=== PATIENT | female | born 1990 | race American Indian/Alaskan Native ===

== ENCOUNTER 2016-12-17 06:04 | Day surgery (SDC) | payer BC, MEDICAID, OTHER ==
[~2016-12-17 06:04] MED LIST: Lactated Ringers 1,000 ML IV SCH; Sodium Chloride 0.9% 10 ML Syringe FLUSH PRN; ceFAZolin 1 GM in Premix Bag 1 BAG IV ONE
[2016-12-17] MEDS ORDERED: Lidocaine 1% 30 ML SDV ONE (06:15)
[2016-12-17] MEDS ORDERED: Bupivacaine 0.5% 10 ML SDV ONE (06:15)
--- NOTE | 2016-12-17 06:47 | PCM.SN ---
- Free Text/Narrative Note: Preop. Meds and allergies reviewed w chart review. No complications w previous anesthetics. NPO > 8 hrs. Pos smoker. neg GERD, Mallampati 1. Hx obesity, tubal ligation, Lungs CTAB, heart RRR s1 S2 w/o m. Risks benefits and alternatives of anesthesia explained to Pt. Pt denies questions or concerns. Plan MAC
[2016-12-17] MEDS ORDERED: Bupivacaine 0.5% 10 ML SDV INJECT ONE ×2 (07:21→09:25)
[2016-12-17] MEDS ORDERED: Lidocaine 1% 30 ML SDV INJECT ONE ×2 (07:21→09:25)
[2016-12-17] MEDS ORDERED: Acetaminophen/oxyCODONE 325-5 MG Tab PO PRN (09:11)
--- NOTE | 2016-12-17 09:14 | PCM.OPNOTE ---
- General Post-Op/Procedure Note Date of Surgery/Procedure: 12/17/16 Operative Procedure(s): Right foot 1st metatarsal osteotomy/bunionectomy Pre Op Diagnosis: Right foot painful bunion Post-Op Diagnosis: martha Anesthesia Technique: Local, MAC Primary Surgeon: Janel Humphreys Anesthesia Provider: Balta Saab EBL in mLs: 5 Complications: none Condition: Good Free Text/Narrative:: Pt tolerated procedure well and was transported to pacu with vss and vascular status intact to all digits. 3.0 ward cannulated screws to bunionectomy. Well padded dressing and cam boot applied.
[2016-12-17] MEDS ORDERED: HYDROmorphone 1 MG/ML Syringe IV ONE (09:25)
[2016-12-17] MEDS ORDERED: Ketorolac 30 MG/ML SDV IVPUSH ONE (09:25)
[2016-12-17] MEDS ORDERED: Midazolam 1 MG/ML 2 ML SDV IV ONE (09:25)
[2016-12-17] MEDS ORDERED: Propofol 200 MG/20 ML SDV IV ONE (09:25)
[2016-12-17] MEDS ORDERED: Ondansetron 4 MG/2 ML SDV IV ONE (09:25)
--- NOTE | 2016-12-17 09:43 | PCM.SN ---
- Free Text/Narrative Note: Post op. Pt alert and oriented. VSS. Pt denies pain or nausea. Tolerating PO well. No anesthesia concerns noted
--- NOTE | 2016-12-18 21:02 | OR ---
DATE: 12/17/2016 PREOPERATIVE DIAGNOSIS: Right foot painful bunion. POSTOPERATIVE DIAGNOSIS: Right foot painful bunion. PROCEDURE PERFORMED: Right foot bunionectomy/osteotomy, Amrit type. ANESTHESIA: Local MAC with preoperative local block of 1:1 mixture of 1% lidocaine plain and 0.5% Marcaine plain. TOURNIQUET TIME: 76 minutes pneumatic ankle tourniquet. ESTIMATED BLOOD LOSS: Minimal. SPECIMEN: None. COMPLICATIONS: None. INDICATIONS: Manuel is a 26-year-old female, who presents with painful bunion, right foot greater than the left. She states the bunions have been present for many years now. She did get these evaluated in the past by a staple side laster, who told her she should wait until she is at least 19 years old to get surgery. She has tried wider shoes, bunion padding, and sponge with no relief. She reports her mother and a couple of aunts also had surgery for her but they are bunions. Pain is worse with walking and is located to the pump. X-rays, 3 views of the right foot revealed deviated 1st metatarsal with intermetatarsal angle of 10 degrees, she does have a significant metatarsus adductus component with metatarsus angle of 20 degrees, hallux abductus angle of 33 degrees, slightly dorsiflexed first metatarsal. The patient voiced good understanding of proposed procedure and possible complications, elects to have surgery at this time. We did discuss Lapidus versus Achilles procedure and she wants to go ahead Achilles at this point. DESCRIPTION OF THE PROCEDURE: The patient was taken to the operating room, lying in supine position. After adequate anesthesia induction as described above. The right foot was prepped and draped in the usual sterile fashion. A pneumatic ankle tourniquet was inflated to 225 mmHg. Attention was then directed to the dorsal aspect of the right foot with the first metatarsophalangeal joint where an approximately 5 cm linear incision was made. Sharp and blunt dissection was performed down to the level of the joint capsule with care to gently retract all neurovascular bundles. An inverted L capsulotomy was made and the capsule was reflected to expose the distal 1st metatarsal. The hypertrophic medial eminence was noted at this time and resected with a sagittal saw. The remainder of the 1st metatarsophalangeal joint appeared healthy without any cartilaginous defects present. Blunt dissection was then performed in the 1st interspace to the level of the fibular sesamoid. The adductor hallucis tendon was transected from its attachment to the fibular sesamoid. A sagittal saw was then used to make a chevron-type osteotomy with a long dorsal arm, angulated in a fashion that would allow plantar displacement to maintenance of length with lateral transposition of the capital fragment. The capital fragment was then laterally transposed approximately 8 mm and impacted to bring the hallux in a near-rectus alignment. Temporary fixation was used with K-wires from the screw set. Two partially- threaded 3.0 [place] screws were then inserted across the osteotomy. The temporary fixation was removed. The osteotomy site was noted to be stable with axial valgus and varus forces applied with fluid range of motion at the first MTPJ. This was all done under fluoroscopy guidance, which did show adequate reduction of the bunion deformity and proper fixation with the screws. The medial capsulorrhaphy was performed. The area was irrigated with copious amounts of sterile saline. Capsular closure was completed with 3-0 Vicryl and skin closure was completed with 4-0 nylon. The hallux was noted to be in near- rectus alignment at this time. The surgical site was then dressed with Xeroform to the incision site, fluffs, Webril and an Mor wrap. The patient was then placed in a Cam boot. The patient tolerated procedure and anesthesia well and left the operating room for recovery with vital signs stable and in good condition with vascular status intact to the right foot as noted by immediate hyperemia to all digits upon deflation of the tourniquet. Total tourniquet time was 76 minutes. The patient was then discharged home when she met hospital discharge requirements. [facility] /[id number]
[2017-02-10 12:50] VITALS: BP 110/73
== END 2016-12-17 10:50 | disposition home or self-care (01) ==
LOC: DL.SDS 06:04
PROVIDERS: ATTEND Podiatrist
DX: M21.611 Bunion of right foot (principal); Z88.1 Allergy status to other antibiotic agents; Z88.6 Allergy status to analgesic agent; Z91.018 Allergy to other foods; Z90.49 Acquired absence of other specified parts of digestive tract; Z98.890 Other specified postprocedural states; F17.210 Nicotine dependence, cigarettes, uncomplicated
CPT/HCPCS: 01480; 28296; C1713; J0690; J1170; J1885; J2250; J2405; J2704; J7120; 76000

== ENCOUNTER 2016-12-28 17:46 | Emergency (ER) | payer OTHER, MEDICAID ==
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
[2016-12-28 19:12] VITALS: BP 122/80
[2016-12-28 19:38] LABS: CHLORIDE,CL 104 mmol/L (101-111); SODIUM,NA 139 mmol/L (135-145)
[2016-12-28] MEDS ORDERED: Ibuprofen 600 MG Tab PO ONE (20:22)
== END 2016-12-28 20:49 | disposition home or self-care (01) ==
LOC: DL.ED 17:46
DX: S16.1XXA Strain of muscle, fascia and tendon at neck level, initial encounter (principal); M19.90 Unspecified osteoarthritis, unspecified site; F17.210 Nicotine dependence, cigarettes, uncomplicated; Z86.2 Personal history of diseases of the blood and blood-forming organs and certain disorders involving the immune mechanism; Z90.49 Acquired absence of other specified parts of digestive tract; Z88.5 Allergy status to narcotic agent; Z88.1 Allergy status to other antibiotic agents; V49.59XA Passenger injured in collision with other motor vehicles in traffic accident, initial encounter
CPT/HCPCS: 36415; 70450; 71250; 72125; 80053; 80305; 81001; 81025; 85025; 99285; A9270

== ENCOUNTER 2017-03-10 22:16 | Emergency (ER) | payer OTHER, MEDICAID ==
[2017-03-10 23:13] VITALS: BP 144/68
--- NOTE | 2017-03-11 00:07 | EDM.PDOC ---
{null, ED HPI GENERAL MEDICAL PROBLEM - General Stated Complaint: ABD PAIN, [id number] Time Seen by Provider: 03/11/17 00:05 Source of Information: Reports: Patient History Limitations: Reports: No Limitations - History of Present Illness INITIAL COMMENTS - FREE TEXT/NARRATIVE: being Tx for UTI told if has increase pain and blood in urine to come here. tonight has them. Bilateral Flank Pain Score (Numeric/FACES): 8 - Related Data Allergies Allergy/AdvReac Type Severity Reaction Status Date / Time codeine Allergy Hives Verified 03/10/17 22:56 erythromycin base Allergy Rash Verified 03/10/17 22:56 [From Pediazole] erythromycin ethylsuccinate Allergy Rash Verified 03/10/17 22:56 [From E.E.S.] strawberry Allergy Cannot Verified 03/10/17 22:56 Remember fentanyl AdvReac Lightheaded Verified 03/10/17 22:56 ness hydromorphone [From Dilaudid] AdvReac Hypotension Verified 03/10/17 22:56 TAPE Allergy Cannot Uncoded 12/28/16 19:15 Remember Home Meds: Home Meds Acetaminophen [Tylenol Extra Strength] 1 - 2 tab PO Q6H PRN 12/01/16 [History] Ibuprofen 1 tab PO Q8H PRN 12/01/16 [History] Ciprofloxacin HCl [Cipro] 1 tab PO BID 03/10/17 [History] Sertraline HCl [Zoloft] 0.5 tab PO DAILY 03/10/17 [History] Past Medical History HEENT History: Reports: None Other HEENT History: wears glasses Cardiovascular History: Reports: None Respiratory History: Reports: None Gastrointestinal History: Reports: None 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 History: Reports: None 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: Musculoskeletal History: Reports: Arthritis Neurological History: Reports: None Psychiatric History: Reports: None Endocrine/Metabolic History: Reports: None Hematologic History: Reports: Anemia, B12 Deficiency Immunologic History: Reports: None Oncologic (Cancer) History: Reports: None Dermatologic History: Reports: Eczema - Infectious Disease History Infectious Disease History: Reports: Chicken Pox - Past Surgical History Female Surgical History: Reports: Section Musculoskeletal Surgical History: Reports: Other (See Below) Social & Family History - Family History HEENT: Reports: None Cardiac: Reports: CAD, Heart Failure, High Cholesterol, Hypertension Respiratory: Reports: Asthma, COPD GI: Reports: Cholelithiasis : Reports: Renal Disease/Insufficiency Musculoskeletal: Reports: Fibromyalgia Neurological: Reports: None Psychiatric: Reports: Anxiety, Depression Endocrine/Metabolic: Reports: Diabetes, type II, Obesity/MBI 30+ Hematologic: Reports: Idiopathic Thrombocytopen Immunologic: Reports: None Dermatologic: Reports: None Oncologic: Reports: None - Tobacco Use Smoking Status *Q: Current Every Day Smoker Years of Tobacco use: 6 Packs/Tins Daily: 0.2 Used Tobacco, but Quit: No Second Hand Smoke Exposure: Yes - Caffeine Use Caffeine Use: Reports: Coffee, Soda Caffeine Use Comment: 2 cups coffee, 1-2 pop daily - Alcohol Use Days Per Week of Alcohol Use: 0 - Recreational Drug Use Recreational Drug Use: No - Sexual History Sexual History: Reports: Sexually Active - Living Situation & Occupation Living situation: Reports: with Significant Other Occupation: Employed ED ROS GENERAL - Review of Systems Review Of Systems: ROS reveals no pertinent complaints other than HPI. ED EXAM, RENAL/ - Physical Exam Exam: See Below Exam Limited By: Other General Appearance: Alert, WD/WN, Mild Distress, Other (discomfort) Ears: Hearing Grossly Normal Throat/Mouth: Normal Voice, No Airway Compromise Head: Atraumatic Neck: Non-Tender, Full Range of Motion Respiratory/Chest: No Respiratory Distress Cardiovascular: Regular Rate, Rhythm GI/Abdominal: Soft, Non-Tender Back Exam: CVA Tenderness (L), CVA Tenderness (R) Neurological: Alert, Oriented, Normal Cognition, Normal Gait, No Motor/Sensory Deficits Psychiatric: Tearful Skin Exam: Warm, Dry Lymphatic: No Adenopathy Course - Vital Signs Last Recorded V/S: Last Vital Signs Temp 37.1 C 03/10/17 23:05 Pulse 78 03/10/17 23:05 Resp 16 03/10/17 23:05 BP 144/68 H 03/10/17 23:05 Pulse Ox 100 03/10/17 23:05 - Orders/Labs/Meds Orders: Active Orders 24 hr Category Date Time Status Phenazopyridine [Urinary Pain Relief] Med 03/11/17 00:33 Once 95 mg PO ONETIME ONE Medication Orders Phenazopyridine HCl (Urinary Pain Relief) 95 mg PO ONETIME ONE Stop: 03/11/17 00:34 Labs: Laboratory Tests 03/11/17 Range/Units 00:08 Urine Color Yellow (YELLOW) Urine Appearance Slightly cloudy (CLEAR) Urine pH 5.0 (5.0-9.0) Ur Specific [place] <= 1.005 (1.005-1.030) Urine Protein Negative (NEGATIVE) Urine Glucose (UA) Negative (NEGATIVE) Urine Ketones Negative (NEGATIVE) Urine Occult Blood Negative (NEGATIVE) Urine Nitrite Negative (NEGATIVE) Urine Bilirubin Negative (NEGATIVE) Urine Urobilinogen 0.2 (0.2-1.0) mg/dL Ur Leukocyte Esterase Trace H (NEGATIVE) Urine RBC 0-5 /HPF Urine WBC 20-30 H (0-5/HPF) /HPF Ur Epithelial Cells Moderate H /HPF Urine Bacteria Moderate H (0-FEW/HPF) /HPF Meds: Medications Generic Name Dose Route Start Last Admin Trade Name Freq PRN Reason Stop Dose Admin Phenazopyridine HCl 95 mg 03/11/17 00:33 Urinary Pain Relief PO 03/11/17 00:34 ONETIME ONE - Re-Assessments/Exams Free Text/Narrative Re-Assessment/Exam: 03/11/17 00:34 results discussed with Pt. Departure - Departure Time of Disposition: 00:34 Disposition: Home, Self-Care 01 Condition: good Clinical Impression: UTI, Urinary tract infectious disease - Discharge Information Instructions: Urinary Tract Infection, Adult, [id number] Forms: ED Department Discharge Additional Instructions: 1) rest 2) drink lots of liquids 3) follow up at clinic or recheck asneeded rx given: pyridium 100mg tid prn x 12 - My Orders Last 24 Hours: My Active Orders 03/11/17 00:33 Phenazopyridine [Urinary Pain Relief] 95 mg PO ONETIME ONE - Assessment/Plan Last 24 Hours: My Active Orders 03/11/17 00:33 Phenazopyridine [Urinary Pain Relief] 95 mg PO ONETIME ONE }
[2017-03-11] MEDS ORDERED: Phenazopyridine 95 MG Tab PO ONE (00:33)
== END 2017-03-11 00:42 | disposition home or self-care (01) ==
LOC: DL.ED 22:16
DX: N39.0 Urinary tract infection, site not specified (principal); M19.90 Unspecified osteoarthritis, unspecified site; D64.9 Anemia, unspecified; F17.210 Nicotine dependence, cigarettes, uncomplicated; Z88.5 Allergy status to narcotic agent; Z88.1 Allergy status to other antibiotic agents; Z91.018 Allergy to other foods; Z88.8 Allergy status to other drugs, medicaments and biological substances; Z79.899 Other long term (current) drug therapy
CPT/HCPCS: 81001; 99283; A9270

== ENCOUNTER 2017-03-15 19:35 | Emergency (ER) | payer MEDICAID, OTHER ==
[2017-03-15 19:42] VITALS: BP 160/81
[2017-03-15 20:25] LABS: CHLORIDE,CL 103 mmol/L (101-111); SODIUM,NA 139 mmol/L (135-145)
--- NOTE | 2017-03-15 20:41 | EDM.PDOC ---
ED HPI GENERAL MEDICAL PROBLEM - General Chief Complaint: General Stated Complaint: NOT FEELING WELL Time Seen by Provider: 03/15/17 19:47 Source of Information: Reports: Patient History Limitations: Reports: No Limitations - History of Present Illness INITIAL COMMENTS - FREE TEXT/NARRATIVE: Patient presents with c/o not feeling well, wondering if "iron low". Has been low in past. Admits heavy menstrual flow with one large clot today, Contacted clinic and was told to go to ER. Currently on antibiotic for UTI and notes improvement in sx. Has had heavy periods in past. Denies concern for as tubal in 2015. Mild cramping. No dizziness. Chills . - Related Data Allergies Allergy/AdvReac Type Severity Reaction Status Date / Time codeine Allergy Hives Verified 03/15/17 19:41 erythromycin base Allergy Rash Verified 03/15/17 19:41 [From Pediazole] erythromycin ethylsuccinate Allergy Rash Verified 03/15/17 19:41 [From E.E.S.] strawberry Allergy Cannot Verified 03/15/17 19:41 Remember fentanyl AdvReac Lightheaded Verified 03/15/17 19:41 ness hydromorphone [From Dilaudid] AdvReac Hypotension Verified 03/15/17 19:41 TAPE Allergy Cannot Uncoded 03/15/17 19:41 Remember Home Meds: Home Meds Acetaminophen [Tylenol Extra Strength] 1 - 2 tab PO Q6H PRN 12/01/16 [History] Ibuprofen 1 tab PO Q8H PRN 12/01/16 [History] Ciprofloxacin HCl [Cipro] 1 tab PO BID 03/10/17 [History] Sertraline HCl [Zoloft] 0.5 tab PO DAILY 03/10/17 [History] Past Medical History HEENT History: Reports: None Other HEENT History: wears glasses Cardiovascular History: Reports: None Respiratory History: Reports: None Gastrointestinal History: Reports: None 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 History: Reports: None Other 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: Musculoskeletal History: Reports: Arthritis Neurological History: Reports: None Psychiatric History: Reports: None Endocrine/Metabolic History: Reports: None Hematologic History: Reports: Anemia, B12 Deficiency Immunologic History: Reports: None Oncologic (Cancer) History: Reports: None Dermatologic History: Reports: Eczema - Infectious Disease History Infectious Disease History: Reports: Chicken Pox - Past Surgical History Head Surgeries/Procedures: Reports: None Female Surgical History: Reports: Section Musculoskeletal Surgical History: Reports: Other (See Below) Social & Family History - Family History HEENT: Reports: None Cardiac: Reports: CAD, Heart Failure, High Cholesterol, Hypertension Respiratory: Reports: Asthma, COPD GI: Reports: Cholelithiasis : Reports: Renal Disease/Insufficiency Musculoskeletal: Reports: Fibromyalgia Neurological: Reports: None Psychiatric: Reports: Anxiety, Depression Endocrine/Metabolic: Reports: Diabetes, type II, Obesity/MBI 30+ Hematologic: Reports: Idiopathic Thrombocytopen Immunologic: Reports: None Dermatologic: Reports: None Oncologic: Reports: None - Tobacco Use Smoking Status *Q: Current Every Day Smoker Years of Tobacco use: 8 Packs/Tins Daily: 0.3 Used Tobacco, but Quit: No Second Hand Smoke Exposure: Yes - Caffeine Use Caffeine Use: Reports: Coffee, Soda Caffeine Use Comment: 2 cups coffee, 1-2 pop daily - Alcohol Use Days Per Week of Alcohol Use: 0 - Recreational Drug Use Recreational Drug Use: No - Sexual History Sexual History: Reports: Sexually Active - Living Situation & Occupation Living situation: Reports: with Significant Other Occupation: Employed ED ROS GENERAL - Review of Systems Review Of Systems: See Below Constitutional: Reports: Chills HEENT: Reports: No Symptoms Respiratory: Reports: No Symptoms Cardiovascular: Reports: No Symptoms GI/Abdominal: Reports: No Symptoms : Reports: Irregular Menses. Denies: Dysuria, Flank Pain, Frequency Musculoskeletal: Reports: No Symptoms Skin: Reports: No Symptoms Neurological: Reports: No Symptoms ED EXAM, GENERAL - Physical Exam Exam: See Below Exam Limited By: No Limitations General Appearance: Alert, No Apparent Distress Eye Exam: Bilateral Eye: EOMI Ears: Normal External Exam Nose: Normal Inspection Throat/Mouth: Normal Inspection Head: Atraumatic, Normocephalic Neck: Normal Inspection, Full Range of Motion Respiratory/Chest: No Respiratory Distress, Lungs Clear, Normal Breath Sounds Cardiovascular: Normal Peripheral Pulses, Regular Rate, Rhythm, No Murmur GI/Abdominal: Normal Bowel Sounds, Soft, Other (mild suprapubic tenderness with palpation) Back Exam: CVA Tenderness (R). No: CVA Tenderness (L) Extremities: Normal Inspection Neurological: Alert, Oriented, Normal Cognition Psychiatric: Normal Affect Skin Exam: Warm, Dry, Intact, Normal Color Course - Vital Signs Last Recorded V/S: Last Vital Signs Temp 97.8 F 03/15/17 19:41 Pulse 73 03/15/17 19:41 Resp 20 03/15/17 19:41 BP 160/81 H 03/15/17 19:41 Pulse Ox 100 03/15/17 19:41 - Orders/Labs/Meds Labs: Laboratory Tests 03/15/17 03/15/17 03/15/17 Range/Units 19:53 19:59 19:59 WBC 9.5 (5.0-10.0) 10^3/uL RBC 4.91 (4.2-5.4) 10^6/uL Hgb 12.9 (12.0-16.0) g/dL Hct 39.7 (37.0-47.0) % MCV 80.9 (80-100) fL MCH 26.3 L (27.0-34.0) pg MCHC 32.5 L (33.0-35.0) g/dL Plt Count 327 (150-450) 10^3/uL Neut % (Auto) 71.7 (42.2-75.2) % Lymph % (Auto) 19.9 L (20.5-50.1) % [place] % (Auto) 6.7 (2-8) % Eos % (Auto) 1.5 (1.0-3.0) % Baso % (Auto) 0.2 (0.0-1.0) % Sodium 139 (135-145) mmol/L Potassium 3.9 (3.6-5.0) mmol/L Chloride 103 (101-111) mmol/L Carbon Dioxide 29.0 (21.0-31.0) mmol/L Anion Gap 10.9 BUN 9 (7-18) mg/dL Creatinine 1.1 (0.6-1.3) mg/dL Est Cr Clr Drug Dosing TNP Estimated GFR (MDRD) > 60 BUN/Creatinine Ratio 8.18 Glucose 95 (74-105) mg/dL Calcium 9.1 (8.4-10.2) mg/dl Total Bilirubin 0.3 (0.2-1.0) mg/dL AST 44 H (10-42) IU/L ALT 61 H (10-60) IU/L Alkaline Phosphatase 93 (42-121) IU/L C-Reactive Protein (0.0-1.3) mg/dL Total Protein 7.9 (6.7-8.2) g/dl Albumin 3.9 (3.2-5.5) g/dl Globulin 4.0 Albumin/Globulin Ratio 0.98 HCG, Qual Negative Urine Color Dark yellow (YELLOW) Urine Appearance Slightly cloudy (CLEAR) Urine pH 6.5 (5.0-9.0) Ur Specific [place] 1.020 (1.005-1.030) Urine Protein Negative (NEGATIVE) Urine Glucose (UA) Negative (NEGATIVE) Urine Ketones Trace H (NEGATIVE) Urine Occult Blood Moderate H (NEGATIVE) Urine Nitrite Negative (NEGATIVE) Urine Bilirubin Negative (NEGATIVE) Urine Urobilinogen 0.2 (0.2-1.0) mg/dL Ur Leukocyte Esterase Trace H (NEGATIVE) Urine RBC 30-40 H /HPF Urine WBC 0-5 (0-5/HPF) /HPF Ur Epithelial Cells Few /HPF Amorphous Sediment Rare (0/HPF) /HPF Urine Bacteria Rare (0-FEW/HPF) /HPF 03/15/17 Range/Units 19:59 WBC (5.0-10.0) 10^3/uL RBC (4.2-5.4) 10^6/uL Hgb (12.0-16.0) g/dL Hct (37.0-47.0) % MCV (80-100) fL MCH (27.0-34.0) pg MCHC (33.0-35.0) g/dL Plt Count (150-450) 10^3/uL Neut % (Auto) (42.2-75.2) % Lymph % (Auto) (20.5-50.1) % [place] % (Auto) (2-8) % Eos % (Auto) (1.0-3.0) % Baso % (Auto) (0.0-1.0) % Sodium (135-145) mmol/L Potassium (3.6-5.0) mmol/L Chloride (101-111) mmol/L Carbon Dioxide (21.0-31.0) mmol/L Anion Gap BUN (7-18) mg/dL Creatinine (0.6-1.3) mg/dL Est Cr Clr Drug Dosing Estimated GFR (MDRD) BUN/Creatinine Ratio Glucose (74-105) mg/dL Calcium (8.4-10.2) mg/dl Total Bilirubin (0.2-1.0) mg/dL AST (10-42) IU/L ALT (10-60) IU/L Alkaline Phosphatase (42-121) IU/L C-Reactive Protein 2.2 H (0.0-1.3) mg/dL Total Protein (6.7-8.2) g/dl Albumin (3.2-5.5) g/dl Globulin Albumin/Globulin Ratio HCG, Qual Urine Color (YELLOW) Urine Appearance (CLEAR) Urine pH (5.0-9.0) Ur Specific [place] (1.005-1.030) Urine Protein (NEGATIVE) Urine Glucose (UA) (NEGATIVE) Urine Ketones (NEGATIVE) Urine Occult Blood (NEGATIVE) Urine Nitrite (NEGATIVE) Urine Bilirubin (NEGATIVE) Urine Urobilinogen (0.2-1.0) mg/dL Ur Leukocyte Esterase (NEGATIVE) Urine RBC /HPF Urine WBC (0-5/HPF) /HPF Ur Epithelial Cells /HPF Amorphous Sediment (0/HPF) /HPF Urine Bacteria (0-FEW/HPF) /HPF Departure - Departure Time of Disposition: 20:33 Disposition: Home, Self-Care 01 Condition: good Clinical Impression: Menorrhagia with regular cycle - Discharge Information Instructions: Menorrhagia, [id number] Forms: ED Department Discharge Additional Instructions: increase fluid intake follow up in clinic in am, sooner if bleeding worsens ibuprofen 600mg every 6 hours for 48 hours, take with food
== END 2017-03-15 20:48 | disposition home or self-care (01) ==
LOC: DL.ED 19:35
DX: N92.0 Excessive and frequent menstruation with regular cycle (principal); N39.0 Urinary tract infection, site not specified; F17.210 Nicotine dependence, cigarettes, uncomplicated; M19.90 Unspecified osteoarthritis, unspecified site; Z88.5 Allergy status to narcotic agent; Z88.1 Allergy status to other antibiotic agents; Z88.8 Allergy status to other drugs, medicaments and biological substances; Z79.899 Other long term (current) drug therapy; Z86.2 Personal history of diseases of the blood and blood-forming organs and certain disorders involving the immune mechanism
CPT/HCPCS: 36415; 80053; 81001; 84703; 85025; 86140; 99284

== ENCOUNTER 2017-10-04 21:50 | Emergency (ER) | payer MEDICAID, OTHER ==
[2017-10-04 22:53] VITALS: BP 118/73
[2017-10-04 23:40] LABS: CHLORIDE,CL 106 mmol/L (101-111); SODIUM,NA 139 mmol/L (135-145)
--- NOTE | 2017-10-05 01:15 | EDM.PDOC ---
ED HPI GENERAL MEDICAL PROBLEM - General Chief Complaint: General Stated Complaint: SICK [id number] Time Seen by Provider: 10/05/17 01:08 Source of Information: Reports: Patient History Limitations: Reports: No Limitations - History of Present Illness INITIAL COMMENTS - FREE TEXT/NARRATIVE: c/o cold symptoms for 3 days with congestion, sorethroat and aches, tonight chest started hurting with cough. Last tylenol at 4 pm, Has not had any ibuprofen today. 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 Chest Pain Score (Numeric/FACES): 5 - Related Data Allergies Allergy/AdvReac Type Severity Reaction Status Date / Time codeine Allergy Hives Verified 10/04/17 22:58 erythromycin base Allergy Rash Verified 10/04/17 22:58 [From Pediazole] erythromycin ethylsuccinate Allergy Rash Verified 10/04/17 22:58 [From E.E.S.] strawberry Allergy Cannot Verified 10/04/17 22:58 Remember fentanyl AdvReac Lightheaded Verified 10/04/17 22:58 ness hydromorphone [From Dilaudid] AdvReac Hypotension Verified 10/04/17 22:58 TAPE Allergy Cannot Uncoded 10/04/17 22:58 Remember Home Meds: Home Meds Acetaminophen [Tylenol Extra Strength] 1 - 2 tab PO Q6H PRN 12/01/16 [History] Ibuprofen 1 tab PO Q8H PRN 12/01/16 [History] Ciprofloxacin HCl [Cipro] 1 tab PO BID 03/10/17 [History] Sertraline HCl [Zoloft] 0.5 tab PO DAILY 03/10/17 [History] Past Medical History HEENT History: Reports: None Other HEENT History: wears glasses Cardiovascular History: Reports: None Respiratory History: Reports: None Gastrointestinal History: Reports: None 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 History: Reports: None Other 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 History: 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: Musculoskeletal History: Reports: Arthritis Neurological History: Reports: None Psychiatric History: Reports: None Endocrine/Metabolic History: Reports: None Hematologic History: Reports: Anemia, B12 Deficiency Immunologic History: Reports: None Oncologic (Cancer) History: Reports: None Dermatologic History: Reports: Eczema - Infectious Disease History Infectious Disease History: Reports: Chicken Pox - Past Surgical History Head Surgeries/Procedures: Reports: None GI Surgical History: Reports: Appendectomy, Cholecystectomy Female Surgical History: Reports: Section Social & Family History - Family History HEENT: Reports: None Cardiac: Reports: CAD, Heart Failure, High Cholesterol, Hypertension Respiratory: Reports: Asthma, COPD GI: Reports: Cholelithiasis : Reports: Renal Disease/Insufficiency Musculoskeletal: Reports: Fibromyalgia Neurological: Reports: None Psychiatric: Reports: Anxiety, Depression Endocrine/Metabolic: Reports: Diabetes, type II, Obesity/MBI 30+ Hematologic: Reports: Idiopathic Thrombocytopen Immunologic: Reports: None Dermatologic: Reports: None Oncologic: Reports: None - Tobacco Use Smoking Status *Q: Current Every Day Smoker Years of Tobacco use: 1 Packs/Tins Daily: 8 Used Tobacco, but Quit: No Second Hand Smoke Exposure: Yes - Caffeine Use Caffeine Use: Reports: Coffee, Soda Caffeine Use Comment: 2 cups coffee, 1-2 pop daily - Alcohol Use Days Per Week of Alcohol Use: 0 - Recreational Drug Use Recreational Drug Use: No - Sexual History Sexual History: Reports: Sexually Active - Living Situation & Occupation Living situation: Reports: with Significant Other Occupation: Employed ED ROS GENERAL - Review of Systems Review Of Systems: See Below Constitutional: Reports: Malaise HEENT: Reports: Sinus Problem Respiratory: Reports: Cough Cardiovascular: Reports: No Symptoms, PND GI/Abdominal: Reports: No Symptoms : Reports: No Symptoms Musculoskeletal: Reports: No Symptoms Skin: Reports: No Symptoms Neurological: Reports: No Symptoms Psychiatric: Reports: No Symptoms ED EXAM, GENERAL - Physical Exam Exam: See Below Exam Limited By: No Limitations General Appearance: Alert, No Apparent Distress Eye Exam: Bilateral Eye: EOMI Ears: Normal External Exam, Normal TMs Nose: Normal Inspection Throat/Mouth: Normal Inspection Head: Atraumatic, Normocephalic Neck: Normal Inspection, Full Range of Motion Respiratory/Chest: No Respiratory Distress, Lungs Clear, Normal Breath Sounds. No: Respiratory Distress, Decreased Breath Sounds Cardiovascular: Normal Peripheral Pulses, Regular Rate, Rhythm GI/Abdominal: Normal Bowel Sounds, Soft, Non-Tender Back Exam: Normal Inspection Extremities: Normal Inspection Neurological: Alert, Oriented, Normal Cognition Psychiatric: Normal Affect Skin Exam: Warm, Dry, Intact, Normal Color Course - Vital Signs Last Recorded V/S: Last Vital Signs Temp 97.3 F 10/04/17 22:52 Pulse 57 L 10/04/17 22:52 Resp 18 10/04/17 22:52 BP 118/73 10/04/17 22:52 Pulse Ox 97 10/04/17 22:52 - Orders/Labs/Meds Labs: Laboratory Tests 10/04/17 10/04/17 10/04/17 Range/Units 23:06 23:08 23:08 WBC 9.2 (5.0-10.0) 10^3/uL RBC 4.80 (4.2-5.4) 10^6/uL Hgb 12.7 (12.0-16.0) g/dL Hct 38.9 (37.0-47.0) % MCV 81.0 (80-100) fL MCH 26.5 L (27.0-34.0) pg MCHC 32.6 L (33.0-35.0) g/dL Plt Count 291 (150-450) 10^3/uL Neut % (Auto) 60.9 (42.2-75.2) % Lymph % (Auto) 29.0 (20.5-50.1) % [place] % (Auto) 8.7 H (2-8) % Eos % (Auto) 1.2 (1.0-3.0) % Baso % (Auto) 0.2 (0.0-1.0) % Sodium 139 (135-145) mmol/L Potassium 3.9 (3.6-5.0) mmol/L Chloride 106 (101-111) mmol/L Carbon Dioxide 25.0 (21.0-31.0) mmol/L Anion Gap 11.9 BUN 13 (7-18) mg/dL Creatinine 0.7 (0.6-1.3) mg/dL Est Cr Clr Drug Dosing 96.32 mL/min Estimated GFR (MDRD) > 60 BUN/Creatinine Ratio 18.57 Glucose 116 H (74-105) mg/dL Calcium 9.2 (8.4-10.2) mg/dl Total Bilirubin 0.3 (0.2-1.0) mg/dL AST 59 H (10-42) IU/L ALT 66 H (10-60) IU/L Alkaline Phosphatase 80 (42-121) IU/L C-Reactive Protein (0.0-1.3) mg/dL Total Protein 7.8 (6.7-8.2) g/dl Albumin 4.0 (3.2-5.5) g/dl Globulin 3.8 Albumin/Globulin Ratio 1.05 Urine Color Yellow (YELLOW) Urine Appearance Cloudy (CLEAR) Urine pH 6.0 (5.0-9.0) Ur Specific [place] >= 1.030 (1.005-1.030) Urine Protein 30 H (NEGATIVE) Urine Glucose (UA) Negative (NEGATIVE) Urine Ketones Trace H (NEGATIVE) Urine Occult Blood Large H (NEGATIVE) Urine Nitrite Negative (NEGATIVE) Urine Bilirubin Negative (NEGATIVE) Urine Urobilinogen 0.2 (0.2-1.0) mg/dL Ur Leukocyte Esterase Trace H (NEGATIVE) Urine RBC >100 H /HPF Urine WBC 5-10 H (0-5/HPF) /HPF Ur Epithelial Cells Moderate H /HPF Urine Bacteria Moderate H (0-FEW/HPF) /HPF Urine Mucus Few H /LPF Urinalysis Comment 10/04/17 Range/Units 23:08 WBC (5.0-10.0) 10^3/uL RBC (4.2-5.4) 10^6/uL Hgb (12.0-16.0) g/dL Hct (37.0-47.0) % MCV (80-100) fL MCH (27.0-34.0) pg MCHC (33.0-35.0) g/dL Plt Count (150-450) 10^3/uL Neut % (Auto) (42.2-75.2) % Lymph % (Auto) (20.5-50.1) % [place] % (Auto) (2-8) % Eos % (Auto) (1.0-3.0) % Baso % (Auto) (0.0-1.0) % Sodium (135-145) mmol/L Potassium (3.6-5.0) mmol/L Chloride (101-111) mmol/L Carbon Dioxide (21.0-31.0) mmol/L Anion Gap BUN (7-18) mg/dL Creatinine (0.6-1.3) mg/dL Est Cr Clr Drug Dosing mL/min Estimated GFR (MDRD) BUN/Creatinine Ratio Glucose (74-105) mg/dL Calcium (8.4-10.2) mg/dl Total Bilirubin (0.2-1.0) mg/dL AST (10-42) IU/L ALT (10-60) IU/L Alkaline Phosphatase (42-121) IU/L C-Reactive Protein 1.8 H (0.0-1.3) mg/dL Total Protein (6.7-8.2) g/dl Albumin (3.2-5.5) g/dl Globulin Albumin/Globulin Ratio Urine Color (YELLOW) Urine Appearance (CLEAR) Urine pH (5.0-9.0) Ur Specific [place] (1.005-1.030) Urine Protein (NEGATIVE) Urine Glucose (UA) (NEGATIVE) Urine Ketones (NEGATIVE) Urine Occult Blood (NEGATIVE) Urine Nitrite (NEGATIVE) Urine Bilirubin (NEGATIVE) Urine Urobilinogen (0.2-1.0) mg/dL Ur Leukocyte Esterase (NEGATIVE) Urine RBC /HPF Urine WBC (0-5/HPF) /HPF Ur Epithelial Cells /HPF Urine Bacteria (0-FEW/HPF) /HPF Urine Mucus /LPF Urinalysis Comment Departure - Departure Time of Disposition: 01:15 Disposition: Home, Self-Care 01 Condition: Good Clinical Impression: URI (upper respiratory infection) Qualifiers: URI type: unspecified URI Qualified Code(s): J06.9 - Acute upper respiratory infection, unspecified - Discharge Information Instructions: Upper Respiratory Infection, Adult, [id number] Referrals: Elvie Kimball MD [Primary Care Provider] - Forms: ED Department Discharge Additional Instructions: humidification increase fluids alternate tylenol and ibuprofen every 4 hours as needed avoid smoking or exposure to it follow up one week if not improving
== END 2017-10-05 01:33 | disposition home or self-care (01) ==
LOC: DL.ED 21:50
DX: J06.9 Acute upper respiratory infection, unspecified (principal); F17.210 Nicotine dependence, cigarettes, uncomplicated; Z88.5 Allergy status to narcotic agent; Z88.1 Allergy status to other antibiotic agents; Z79.899 Other long term (current) drug therapy
CPT/HCPCS: 36415; 80053; 81001; 85025; 86140; 87081; 87430; 87804; 99283

== ENCOUNTER 2018-02-05 18:12 | Emergency (ER) | payer OTHER ==
[2018-02-05] MEDS ORDERED: Ondansetron 4 MG Tab.DIS PO ONE ×2 (18:13→19:07)
[2018-02-05 19:12] LABS: ANION GAP 11.6; CHLORIDE,CL 106 mmol/L (101-111); SODIUM,NA 140 mmol/L (135-145)
[2018-02-05] MEDS ORDERED: Ondansetron 4 MG Tab.DIS ONE (19:50)
--- NOTE | 2018-02-05 19:51 | EDM.PDOC ---
ED HPI GENERAL MEDICAL PROBLEM - General Chief Complaint: Abdominal Pain Stated Complaint: ABD PAIN [id number] Time Seen by Provider: 02/05/18 19:00 Source of Information: Reports: Patient History Limitations: Reports: No Limitations - History of Present Illness INITIAL COMMENTS - FREE TEXT/NARRATIVE: ED with complaint of low abdominal pain since am, Nausea no appetite. No vomiting. No urinary c/o. LMP 01/08. No known hx of ovarian cyst. Onset: Today Bilateral Lower Abdomen Pain Score (Numeric/FACES): 7 - Related Data Allergies Allergy/AdvReac Type Severity Reaction Status Date / Time codeine Allergy Hives Verified 02/05/18 18:26 erythromycin base Allergy Rash Verified 02/05/18 18:26 [From Pediazole] erythromycin ethylsuccinate Allergy Rash Verified 02/05/18 18:26 [From E.E.S.] strawberry Allergy Cannot Verified 02/05/18 18:26 Remember fentanyl AdvReac Lightheaded Verified 02/05/18 18:26 ness hydromorphone [From Dilaudid] AdvReac Hypotension Verified 02/05/18 18:26 TAPE Allergy Cannot Uncoded 10/04/17 22:58 Remember Home Meds: Home Meds Acetaminophen [Tylenol Extra Strength] 1 - 2 tab PO Q6H PRN 12/01/16 [History] Ibuprofen 1 tab PO Q8H PRN 12/01/16 [History] Sertraline HCl [Zoloft] 0.5 tab PO DAILY 03/10/17 [History] Past Medical History HEENT History: Reports: None Other HEENT History: wears glasses Cardiovascular History: Reports: None Respiratory History: Reports: None Gastrointestinal History: Reports: None 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 History: Reports: None Other 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 History: bladder infection 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: Musculoskeletal History: Reports: Arthritis Neurological History: Reports: None Psychiatric History: Reports: None Endocrine/Metabolic History: Reports: None Hematologic History: Reports: Anemia, B12 Deficiency Immunologic History: Reports: None Oncologic (Cancer) History: Reports: None Dermatologic History: Reports: Eczema - Infectious Disease History Infectious Disease History: Reports: Chicken Pox - Past Surgical History Head Surgeries/Procedures: Reports: None GI Surgical History: Reports: Appendectomy, Cholecystectomy Female Surgical History: Reports: Section Social & Family History - Family History HEENT: Reports: None Cardiac: Reports: CAD, Heart Failure, High Cholesterol, Hypertension Respiratory: Reports: Asthma, COPD GI: Reports: Cholelithiasis : Reports: Renal Disease/Insufficiency Musculoskeletal: Reports: Fibromyalgia Neurological: Reports: None Psychiatric: Reports: Anxiety, Depression Endocrine/Metabolic: Reports: Diabetes, type II, Obesity/MBI 30+ Hematologic: Reports: Idiopathic Thrombocytopen Immunologic: Reports: None Dermatologic: Reports: None Oncologic: Reports: None - Tobacco Use Smoking Status *Q: Current Every Day Smoker Years of Tobacco use: 1 Packs/Tins Daily: 8 Used Tobacco, but Quit: No Second Hand Smoke Exposure: Yes - Caffeine Use Caffeine Use: Reports: Coffee, Soda Caffeine Use Comment: 2 cups coffee, 1-2 pop daily - Alcohol Use Days Per Week of Alcohol Use: 0 - Recreational Drug Use Recreational Drug Use: No - Sexual History Sexual History: Reports: Sexually Active - Living Situation & Occupation Living situation: Reports: with Significant Other Occupation: Employed ED ROS GENERAL - Review of Systems Review Of Systems: ROS reveals no pertinent complaints other than HPI. ED EXAM, GI/ABD - Physical Exam Exam: See Below Exam Limited By: No Limitations General Appearance: Alert, No Apparent Distress Eyes: Bilateral: EOMI Ears: Normal External Exam, Normal TMs Nose: Normal Inspection Throat/Mouth: Normal Inspection, Normal Oropharynx Head: Atraumatic, Normocephalic Neck: Normal Inspection Respiratory/Chest: No Respiratory Distress, Lungs Clear, Normal Breath Sounds Cardiovascular: Normal Peripheral Pulses, Regular Rate, Rhythm GI/Abdominal Exam: Normal Bowel Sounds, Soft, Tender (mild deep palpation lower left and suprapubic). No: Distended, Guarding Back Exam: Full Range of Motion, Paraspinal Tenderness (sacral). No: CVA Tenderness (L), CVA Tenderness (R) Neurological: Alert, Oriented, Normal Cognition Psychiatric: Flat Affect Skin Exam: Warm, Dry, Intact, Normal Color Course - Vital Signs Last Recorded V/S: Last Vital Signs Temp 98.2 F 02/05/18 20:05 Pulse 77 02/05/18 20:05 Resp 16 02/05/18 20:05 BP 126/61 02/05/18 20:05 Pulse Ox 97 02/05/18 20:05 - Orders/Labs/Meds Orders: Active Orders 24 hr Category Date Time Status DRUG SCREEN URINE BIORAD [URCHEM] Stat Lab 02/05/18 18:30 Ordered HCG QUALITATIVE,URINE [URCHEM] Stat Lab 02/05/18 18:30 Ordered Labs: Laboratory Tests 02/05/18 02/05/18 02/05/18 Range/Units 18:30 18:30 18:30 WBC (5.0-10.0) 10^3/uL RBC (4.2-5.4) 10^6/uL Hgb (12.0-16.0) g/dL Hct (37.0-47.0) % MCV (80-100) fL MCH (27.0-34.0) pg MCHC (33.0-35.0) g/dL Plt Count (150-450) 10^3/uL Neut % (Auto) (42.2-75.2) % Lymph % (Auto) (20.5-50.1) % [place] % (Auto) (2-8) % Eos % (Auto) (1.0-3.0) % Baso % (Auto) (0.0-1.0) % Sodium (135-145) mmol/L Potassium (3.6-5.0) mmol/L Chloride (101-111) mmol/L Carbon Dioxide (21.0-31.0) mmol/L Anion Gap BUN (7-18) mg/dL Creatinine (0.6-1.3) mg/dL Est Cr Clr Drug Dosing mL/min Estimated GFR (MDRD) BUN/Creatinine Ratio Glucose (74-105) mg/dL Calcium (8.4-10.2) mg/dl Total Bilirubin (0.2-1.0) mg/dL AST (10-42) IU/L ALT (10-60) IU/L Alkaline Phosphatase (42-121) IU/L Total Protein (6.7-8.2) g/dl Albumin (3.2-5.5) g/dl Globulin Albumin/Globulin Ratio Amylase (28-100) U/L Lipase (22-51) U/L Urine Color Yellow (YELLOW) Urine Appearance Slightly cloudy (CLEAR) Urine pH 5.5 (5.0-9.0) Ur Specific [place] 1.020 (1.005-1.030) Urine Protein Negative (NEGATIVE) Urine Glucose (UA) Negative (NEGATIVE) Urine Ketones Negative (NEGATIVE) Urine Occult Blood Negative (NEGATIVE) Urine Nitrite Negative (NEGATIVE) Urine Bilirubin Negative (NEGATIVE) Urine Urobilinogen 0.2 (0.2-1.0) mg/dL Ur Leukocyte Esterase Negative (NEGATIVE) Urine RBC 0-5 /HPF Urine WBC 0-5 (0-5/HPF) /HPF Ur Epithelial Cells Moderate H /HPF Urine Bacteria Moderate H (0-FEW/HPF) /HPF Urine HCG, Qual Negative Urine Opiates Screen Negative (NEGATIVE) Ur Oxycodone Screen Negative (NEGATIVE) Urine Methadone Screen Negative (NEGATIVE) Ur Barbiturates Screen Negative (NEGATIVE) U Tricyclic Antidepress Negative (NEGATIVE) Ur Phencyclidine Scrn Negative (NEGATIVE) Ur Amphetamine Screen Negative (NEGATIVE) U Methamphetamines Scrn Negative (NEGATIVE) Urine MDMA Screen Negative (NEGATIVE) U Benzodiazepines Scrn Negative (NEGATIVE) Urine Cocaine Screen Negative (NEGATIVE) U Marijuana (THC) Screen Negative (NEGATIVE) 02/05/18 02/05/18 02/05/18 Range/Units 18:45 18:45 18:45 WBC 11.6 H (5.0-10.0) 10^3/uL RBC 4.86 (4.2-5.4) 10^6/uL Hgb 12.8 (12.0-16.0) g/dL Hct 38.8 (37.0-47.0) % MCV 79.8 L (80-100) fL MCH 26.3 L (27.0-34.0) pg MCHC 33.0 (33.0-35.0) g/dL Plt Count 261 (150-450) 10^3/uL Neut % (Auto) 70.3 (42.2-75.2) % Lymph % (Auto) 20.0 L (20.5-50.1) % [place] % (Auto) 9.0 H (2-8) % Eos % (Auto) 0.5 L (1.0-3.0) % Baso % (Auto) 0.2 (0.0-1.0) % Sodium 140 (135-145) mmol/L Potassium 3.6 (3.6-5.0) mmol/L Chloride 106 (101-111) mmol/L Carbon Dioxide 26.0 (21.0-31.0) mmol/L Anion Gap 11.6 BUN 11 (7-18) mg/dL Creatinine 0.7 (0.6-1.3) mg/dL Est Cr Clr Drug Dosing 96.32 mL/min Estimated GFR (MDRD) > 60 BUN/Creatinine Ratio 15.71 Glucose 97 (74-105) mg/dL Calcium 9.3 (8.4-10.2) mg/dl Total Bilirubin 0.6 (0.2-1.0) mg/dL AST 67 H (10-42) IU/L ALT 83 H (10-60) IU/L Alkaline Phosphatase 74 (42-121) IU/L Total Protein 7.8 (6.7-8.2) g/dl Albumin 3.9 (3.2-5.5) g/dl Globulin 3.9 Albumin/Globulin Ratio 1.00 Amylase 71 (28-100) U/L Lipase 21 L (22-51) U/L Urine Color (YELLOW) Urine Appearance (CLEAR) Urine pH (5.0-9.0) Ur Specific [place] (1.005-1.030) Urine Protein (NEGATIVE) Urine Glucose (UA) (NEGATIVE) Urine Ketones (NEGATIVE) Urine Occult Blood (NEGATIVE) Urine Nitrite (NEGATIVE) Urine Bilirubin (NEGATIVE) Urine Urobilinogen (0.2-1.0) mg/dL Ur Leukocyte Esterase (NEGATIVE) Urine RBC /HPF Urine WBC (0-5/HPF) /HPF Ur Epithelial Cells /HPF Urine Bacteria (0-FEW/HPF) /HPF Urine HCG, Qual Urine Opiates Screen (NEGATIVE) Ur Oxycodone Screen (NEGATIVE) Urine Methadone Screen (NEGATIVE) Ur Barbiturates Screen (NEGATIVE) U Tricyclic Antidepress (NEGATIVE) Ur Phencyclidine Scrn (NEGATIVE) Ur Amphetamine Screen (NEGATIVE) U Methamphetamines Scrn (NEGATIVE) Urine MDMA Screen (NEGATIVE) U Benzodiazepines Scrn (NEGATIVE) Urine Cocaine Screen (NEGATIVE) U Marijuana (THC) Screen (NEGATIVE) Meds: Medications Discontinued Medications Generic Name Dose Route Start Last Admin Trade Name Freq PRN Reason Stop Dose Admin Ondansetron HCl 4 mg 02/05/18 19:07 02/05/18 19:13 Zofran Odt PO 02/05/18 19:08 4 mg ONETIME ONE Administration Ondansetron HCl Confirm 02/05/18 19:50 02/06/18 02:22 Zofran Odt Administered 02/05/18 19:51 Not Given Dose 8 mg .ROUTE .STK-MED ONE - Radiology Interpretation Free Text/Narrative:: Abdomen one view, no acute process Departure - Departure Time of Disposition: 19:59 Disposition: Home, Self-Care 01 Condition: Good Clinical Impression: Gastroenteritis Abdominal pain Qualifiers: Abdominal location: lower abdomen, unspecified Qualified Code(s): R10.30 - Lower abdominal pain, unspecified - Discharge Information Instructions: Viral Gastroenteritis, Adult, [id number] Referrals: Elvie Kimball MD [Primary Care Provider] - Forms: ED Department Discharge Additional Instructions: Zofran ODT 4mg one every 4 hours as needed for nausea small amounts liquid at more frequent intervals light bland diet, advance as tolerated follow up if symptoms not improving
[2018-02-05 20:10] VITALS: BP 126/61
== END 2018-02-05 20:12 | disposition home or self-care (01) ==
LOC: DL.ED 18:12
DX: K52.9 Noninfective gastroenteritis and colitis, unspecified (principal); F17.210 Nicotine dependence, cigarettes, uncomplicated; Z79.899 Other long term (current) drug therapy; Z88.5 Allergy status to narcotic agent; Z88.1 Allergy status to other antibiotic agents; Z88.6 Allergy status to analgesic agent; Z91.018 Allergy to other foods; Z88.8 Allergy status to other drugs, medicaments and biological substances; Z91.09 Other allergy status, other than to drugs and biological substances
CPT/HCPCS: 36415; 74018; 80053; 80305; 81001; 81025; 82150; 83690; 85025; 87804; 99284; A9270

== ENCOUNTER 2018-03-05 19:35 | Emergency (ER) | payer OTHER ==
[2018-03-05 19:59] VITALS: BP 126/62
--- NOTE | 2018-03-05 20:18 | EDM.PDOC ---
ED HPI GENERAL MEDICAL PROBLEM - General Chief Complaint: Lower Extremity Injury/Pain Stated Complaint: [id number] INJURED KNEE- SWOLLEN Time Seen by Provider: 03/05/18 19:50 Source of Information: Reports: Patient History Limitations: Reports: No Limitations - History of Present Illness INITIAL COMMENTS - FREE TEXT/NARRATIVE: This 28 yo female patient reports to the ED with left knee pain and swelling. The patient reports that she was dancing last night when she started to notice increased pain in her knee. The patient thought it would get better with some rest, but has continued to have pain with weight bearing and straightening her knee. The patient reports she can feel a "pop" when she puts weight on her knee. Onset Date: 03/04/18 Duration: Constant Location: Reports: Lower Extremity, Left (knee) Quality: Reports: Ache, Dull Severity: Moderate Improves with: Reports: Rest Worsens with: Reports: Movement Context: Reports: Activity Left Knee Pain Score (Numeric/FACES): 6 - Related Data Allergies Allergy/AdvReac Type Severity Reaction Status Date / Time codeine Allergy Hives Verified 02/05/18 18:26 erythromycin base Allergy Rash Verified 02/05/18 18:26 [From Pediazole] erythromycin ethylsuccinate Allergy Rash Verified 02/05/18 18:26 [From E.E.S.] strawberry Allergy Cannot Verified 02/05/18 18:26 Remember fentanyl AdvReac Lightheaded Verified 02/05/18 18:26 ness hydromorphone [From Dilaudid] AdvReac Hypotension Verified 02/05/18 18:26 TAPE Allergy Cannot Uncoded 10/04/17 22:58 Remember Home Meds: Home Meds Acetaminophen [Tylenol Extra Strength] 1 - 2 tab PO Q6H PRN 12/01/16 [History] Ibuprofen 1 tab PO Q8H PRN 12/01/16 [History] Sertraline HCl [Zoloft] 100 mg PO DAILY 03/10/17 [History] Past Medical History HEENT History: Reports: None Other HEENT History: wears glasses Cardiovascular History: Reports: None Respiratory History: Reports: None Gastrointestinal History: Reports: None 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 History: Reports: None Other 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 History: bladder infection 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: Musculoskeletal History: Reports: Arthritis Neurological History: Reports: None Psychiatric History: Reports: None Endocrine/Metabolic History: Reports: None Hematologic History: Reports: Anemia, B12 Deficiency Immunologic History: Reports: None Oncologic (Cancer) History: Reports: None Dermatologic History: Reports: Eczema - Infectious Disease History Infectious Disease History: Reports: Chicken Pox - Past Surgical History Head Surgeries/Procedures: Reports: None GI Surgical History: Reports: Appendectomy, Cholecystectomy Female Surgical History: Reports: Section Musculoskeletal Surgical History: Reports: Other (See Below) Other Musculoskeletal Surgeries/Procedures:: right hip, right foot Social & Family History - Family History Family Medical History: Noncontributory HEENT: Reports: None Cardiac: Reports: CAD, Heart Failure, High Cholesterol, Hypertension Respiratory: Reports: Asthma, COPD GI: Reports: Cholelithiasis : Reports: Renal Disease/Insufficiency Musculoskeletal: Reports: Fibromyalgia Neurological: Reports: None Psychiatric: Reports: Anxiety, Depression Endocrine/Metabolic: Reports: Diabetes, type II, Obesity/MBI 30+ Hematologic: Reports: Idiopathic Thrombocytopen Immunologic: Reports: None Dermatologic: Reports: None Oncologic: Reports: None - Tobacco Use Smoking Status *Q: Current Every Day Smoker Years of Tobacco use: 8 Packs/Tins Daily: 1 - Caffeine Use Caffeine Use: Reports: Coffee, Soda Caffeine Use Comment: 2 cups coffee, 1-2 pop daily - Recreational Drug Use Recreational Drug Use: No - Sexual History Sexual History: Reports: Sexually Active - Living Situation & Occupation Living situation: Reports: with Significant Other Occupation: Employed Review of Systems - Review of Systems Review Of Systems: ROS reveals no pertinent complaints other than HPI. ED EXAM, GENERAL - Physical Exam Exam: See Below Exam Limited By: No Limitations General Appearance: Alert, WD/WN, Mild Distress Eye Exam: Bilateral Eye: EOMI, Normal Inspection, PERRL Ears: Normal External Exam, Normal Canal, Hearing Grossly Normal, Normal TMs Nose: Normal Inspection, Normal Mucosa, No Blood Throat/Mouth: Normal Inspection, Normal Lips, Normal Teeth, Normal Gums, Normal Oropharynx, Normal Voice, No Airway Compromise Head: Atraumatic, Normocephalic Neck: Normal Inspection, Supple, Non-Tender, Full Range of Motion Respiratory/Chest: No Respiratory Distress, Lungs Clear, Normal Breath Sounds, No Accessory Muscle Use, Chest Non-Tender Cardiovascular: Normal Peripheral Pulses, Regular Rate, Rhythm, No Edema, No Gallop, No JVD, No Murmur, No Rub GI/Abdominal: Normal Bowel Sounds (Female) Exam: Deferred Rectal (Female) Exam: Deferred Back Exam: Normal Inspection, Full Range of Motion, NT Extremities: Joint Swelling (left knee), Leg Pain (left knee) Neurological: Alert, Oriented, CN II-XII Intact, Normal Cognition Psychiatric: Normal Affect, Normal Mood Skin Exam: Warm, Dry, Intact, Normal Color, No Rash Lymphatic: No Adenopathy Course - Vital Signs Last Recorded V/S: Last Vital Signs Temp 36.4 C 03/05/18 19:43 Pulse 84 03/05/18 19:43 Resp 18 03/05/18 19:43 BP 126/62 03/05/18 19:43 Pulse Ox 98 03/05/18 19:43 - Orders/Labs/Meds Orders: Active Orders 24 hr Category Date Time Status Knee 3V Lt [CR] Urgent Exams 03/05/18 20:09 Taken DME for Discharge [COMM] Urgent Oth 03/05/18 20:40 Ordered Departure - Departure Time of Disposition: 20:41 Disposition: Home, Self-Care 01 Condition: Fair Clinical Impression: Strain of left knee Qualifiers: Encounter type: initial encounter Qualified Code(s): S86.912A - Strain of unspecified muscle(s) and tendon(s) at lower leg level, left leg, initial encounter - Discharge Information Instructions: How to Use a Knee Immobilizer, [id number], Knee Sprain, Adult, [id number] Referrals: Elvie Kimball MD [Primary Care Provider] - Forms: ED Department Discharge Care Plan Goals: The patient was advised of the examination and x-ray results during the visit. The patient was placed in a left knee immobilizer and given a set of crutches. The patient was advised to rest, ice and elevate her knee. If the patient continues to have pain and swelling, the patient should follow-up with her primary care facility by the end of the week. If the patient has any additional symptoms or concerns, the patient should follow-up with her primary care facility or return to the emergency department. - My Orders Last 24 Hours: My Active Orders 03/05/18 20:09 Knee 3V Lt [CR] Urgent 03/05/18 20:40 DME for Discharge [COMM] Urgent - Assessment/Plan Last 24 Hours: My Active Orders 03/05/18 20:09 Knee 3V Lt [CR] Urgent 03/05/18 20:40 DME for Discharge [COMM] Urgent
== END 2018-03-05 20:57 | disposition home or self-care (01) ==
LOC: DL.ED 19:35
DX: S86.912A Strain of unspecified muscle(s) and tendon(s) at lower leg level, left leg, initial encounter (principal); F17.210 Nicotine dependence, cigarettes, uncomplicated; Z88.5 Allergy status to narcotic agent; Z88.1 Allergy status to other antibiotic agents; Z91.018 Allergy to other foods; Z79.899 Other long term (current) drug therapy; X50.9XXA Other and unspecified overexertion or strenuous movements or postures, initial encounter; Y93.41 Activity, dancing
CPT/HCPCS: 73562-LT; 99283

== ENCOUNTER 2021-11-09 21:05 | Emergency (ER) | payer OTHER ==
[2021-11-09] MEDS ORDERED: Acetaminophen 500 MG Tab PO ONE (21:52)
[2021-11-09 22:45] LABS: CORONAVIRUS COVID-19 NAA POSITIVE (NEGATIVE)
[2021-11-09 23:04] VITALS: BP 144/72; PULSE 90
== END 2021-11-09 23:15 | disposition home or self-care (01) ==
LOC: DL.ED 21:05
DX: U07.1 COVID-19 (principal); Z88.5 Allergy status to narcotic agent; Z88.1 Allergy status to other antibiotic agents; Z91.018 Allergy to other foods; Z88.6 Allergy status to analgesic agent; Z91.048 Other nonmedicinal substance allergy status; Z72.0 Tobacco use
CPT/HCPCS: 0240U; 99283; A9270-GY

== ENCOUNTER 2022-01-24 18:31 | Emergency (ER) | payer BC, OTHER ==
[2022-01-24 19:44] VITALS: PULSE 106
[2022-01-24 20:25] LABS: CORONAVIRUS COVID-19 NAA NEGATIVE (NEGATIVE)
[2022-01-24] MEDS ORDERED: Sodium Chloride 0.9% 1,000 ML IV ONE (21:06)
[2022-01-24] MEDS ORDERED: Acetaminophen 500 MG Tab PO ONE (21:06)
[2022-01-24] MEDS ORDERED: Amoxicillin/Clavulanate K 875-125 MG Tab PO ONE (21:06)
[2022-01-24 21:17] VITALS: BP 109/83
[2022-01-24] MEDS ORDERED: Ondansetron 4 MG/2 ML SDV ONE (22:15)
[2022-01-24] MEDS ORDERED: Ondansetron 4 MG/2 ML SDV IVPUSH ONE ×2 (22:16→22:19)
== END 2022-01-24 22:27 | disposition home or self-care (01) ==
LOC: DL.ED 18:31
DX: G43.009 Migraine without aura, not intractable, without status migrainosus (principal); H66.002 Acute suppurative otitis media without spontaneous rupture of ear drum, left ear; Z88.5 Allergy status to narcotic agent; Z88.1 Allergy status to other antibiotic agents; Z88.8 Allergy status to other drugs, medicaments and biological substances; Z91.018 Allergy to other foods; Z91.048 Other nonmedicinal substance allergy status; Z20.822 Contact with and (suspected) exposure to COVID-19
CPT/HCPCS: 0240U; 96374; 99284; 99284-25; A9270-GY; J2405; J7030

== ENCOUNTER 2022-05-12 22:04 | Emergency (ER) | payer BC, OTHER ==
[2022-05-12] MEDS ORDERED: diphenhydrAMINE 25 MG Tab PO ONE (22:29)
[2022-05-12 23:18] VITALS: BP 128/85; PULSE 107
== END 2022-05-12 23:55 | disposition left against medical advice (07) ==
LOC: DL.ED 22:04
DX: Z53.21 Procedure and treatment not carried out due to patient leaving prior to being seen by health care provider (principal)
CPT/HCPCS: A9270-GY

== ENCOUNTER 2022-05-13 12:07 | Emergency (ER) | payer BC, OTHER ==
[2022-05-13] MEDS ORDERED: Famotidine 20 MG/2 ML SDV IVPUSH ONE (12:15)
[2022-05-13] MEDS ORDERED: methylPREDNISolone Sodium Succinate 125 MG/2 ML SDV IVPUSH ONE (12:15)
[2022-05-13] MEDS ORDERED: Ondansetron 4 MG/2 ML SDV IVPUSH ONE (12:20)
[2022-05-13 12:22] VITALS: BP 148/88; PULSE 85
[2022-05-13 13:27] LABS: AMPHETAMINES,URINE NEGATIVE (NEGATIVE); BARBITURATES,URINE NEGATIVE (NEGATIVE); BENZODIAZEPINE,URINE NEGATIVE (NEGATIVE); MDMA (ECSTASY), URINE NEGATIVE (NEGATIVE); METHADONE,URINE NEGATIVE (NEGATIVE); METHAMPHETAMINES,URINE NEGATIVE (NEGATIVE); OPIATES,URINE NEGATIVE (NEGATIVE); OXYCODONE,URINE NEGATIVE (NEGATIVE); PHENCYCLIDINE,URINE NEGATIVE (NEGATIVE); TCA,URINE NEGATIVE (NEGATIVE)
[2022-05-13 13:53] LABS: ANION GAP 10.2 mEq/L (7-13)
[2022-05-13] MEDS ORDERED: Acetaminophen 500 MG Tab PO ONE (14:52)
== END 2022-05-13 15:55 ==
LOC: DL.ED 12:07
DX: R50.9 Fever, unspecified (principal); R51.9 Headache, unspecified; R21 Rash and other nonspecific skin eruption; I11.0 Hypertensive heart disease with heart failure; I50.9 Heart failure, unspecified; I25.10 Atherosclerotic heart disease of native coronary artery without angina pectoris; E66.9 Obesity, unspecified; Z68.45 Body mass index [BMI] 70 or greater, adult; Z88.5 Allergy status to narcotic agent; Z88.8 Allergy status to other drugs, medicaments and biological substances; Z88.1 Allergy status to other antibiotic agents; Z91.018 Allergy to other foods; Z88.6 Allergy status to analgesic agent; Z91.048 Other nonmedicinal substance allergy status; Z90.49 Acquired absence of other specified parts of digestive tract
CPT/HCPCS: 36415; 71045; 80053; 80305; 81003; 81025; 82150; 83605; 83690; 83735; 84145; 84443; 85025; 85651; 86140; 87040; 93005; 96374; 96375; 99285; A9270; J2405; J2930; J3490

== ENCOUNTER 2023-12-04 22:30 | Emergency (ER) | payer BC, OTHER ==
[2023-12-04 22:47] VITALS: BP 125/106; PULSE 108
[2023-12-04] MEDS: Ondansetron 4 MG Tab.DIS PO ONE (22:49)
[2023-12-04] MEDS: Sodium Chloride 0.9% 10 ML Syringe FLUSH PRN (22:49)
[2023-12-04 22:54] LABS: BASOPHILS PERCENT AUTO 0.1 % (0.0-1.0); EOSINOPHILS PERCENT AUTO 0.8 % (1.0-3.0); HEMATOCRIT 46.9 % (37.0-47.0); HEMOGLOBIN 15.4 g/dL (12.0-16.0); LYMPHOCYTES PERCENT AUTO 8.6 % (20.5-50.1); MEAN CORPUSCULAR HEMOGLOBIN 26.9 pg (27.0-34.0); MEAN CORPUSCULAR HGB CONC 32.8 g/dL (33.0-35.0); MEAN CORPUSCULAR VOLUME 81.8 fL (80-100); NEUTROPHILS PERCENT AUTO 86.5 % (42.2-75.2); PLATELET COUNT,PLT 372 10^3/uL (150-450); RED BLOOD CELL COUNT 5.73 10^6/uL (4.2-5.4); WHITE BLOOD CELL COUNT,WBC 18.5 10^3/uL (5.0-10.0)
[2023-12-04] MEDS: Sodium Chloride 0.9% 1,000 ML IV ONE (22:54)
[2023-12-04 23:13] LABS: A/G RATIO 0.9; ALBUMIN 4.3 g/dL (3.4-5.0); BILIRUBIN TOTAL 0.8 mg/dL (0.2-1.0); BUN/CREATININE RATIO 14.6 (No establ ref range); CALCIUM 9.3 mg/dL (8.5-10.1); CREATININE 0.96 mg/dL (0.55-1.02); EST CRCL DRUG DOSING (CG) 66.54 mL/min; PROTEIN TOTAL,TP 9.1 g/dL (6.4-8.2)
[2023-12-04 23:16] LABS: LACTIC ACID 1.2 mmol/L (0.4-2.0)
[2023-12-04 23:30] LABS: CORONAVIRUS COVID-19 NAA NEGATIVE (NEGATIVE); INFLUENZA A NAA NEGATIVE (NEGATIVE); INFLUENZA B NAA NEGATIVE (NEGATIVE)
[2023-12-04] MEDS: Cefepime 2 GM Vial IVPUSH ONE (23:53)
[2023-12-05] MEDS: metroNIDAZOLE/Normal Saline 500 MG in Premix Bag 1 BAG IV ONE
[2023-12-05] MEDS: Take Home: Ondansetron 4 MG Tab.DIS, 5 Tab Pack PO ONE (00:24)
== END 2023-12-05 01:08 | disposition home or self-care (01) ==
LOC: DL.ED 22:30
DX: K52.9 Noninfective gastroenteritis and colitis, unspecified (principal); Z88.5 Allergy status to narcotic agent; Z88.1 Allergy status to other antibiotic agents; Z88.4 Allergy status to anesthetic agent; Z88.8 Allergy status to other drugs, medicaments and biological substances; Z79.899 Other long term (current) drug therapy; Z86.19 Personal history of other infectious and parasitic diseases; Z90.49 Acquired absence of other specified parts of digestive tract
CPT/HCPCS: 0240U; 36415; 80053; 82947; 83605; 84703; 85025; 96361; 96365; 96375; 99284-25; A9270-GY; J0692; J1836; J3490; J7030; Q0162

== ENCOUNTER 2025-03-05 21:15 | Emergency (ER) | payer BC, OTHER ==
[2025-03-05 21:22] VITALS: BP 146/85; PULSE 105
== END 2025-03-05 21:35 | disposition home or self-care (01) ==
LOC: DL.ED 21:15
DX: J02.0 Streptococcal pharyngitis (principal); K21.9 Gastro-esophageal reflux disease without esophagitis; Z88.5 Allergy status to narcotic agent; Z88.8 Allergy status to other drugs, medicaments and biological substances; Z79.899 Other long term (current) drug therapy; Z86.16 Personal history of COVID-19; Z90.49 Acquired absence of other specified parts of digestive tract
CPT/HCPCS: 99283

== ENCOUNTER 2025-03-26 18:31 | Emergency (ER) | payer BC, OTHER ==
[2025-03-26 18:42] VITALS: BP 140/72; PULSE 77
[2025-03-26] MEDS ORDERED: Sodium Chloride 0.9% 10 ML Syringe FLUSH PRN (19:15)
[2025-03-26 19:31] LABS: BASOPHILS PERCENT AUTO 0.2 % (0.0-1.0); EOSINOPHILS PERCENT AUTO 1.1 % (1.0-3.0); HEMATOCRIT 38.3 % (37.0-47.0); HEMOGLOBIN 12.6 g/dL (12.0-16.0); LYMPHOCYTES PERCENT AUTO 22.1 % (20.5-50.1); MEAN CORPUSCULAR HEMOGLOBIN 26.9 pg (27.0-34.0); MEAN CORPUSCULAR HGB CONC 32.9 g/dL (33.0-35.0); MEAN CORPUSCULAR VOLUME 81.7 fL (80-100); MONOCYTES PERCENT AUTO 9.3 % (2-8); NEUTROPHILS PERCENT AUTO 67.3 % (42.2-75.2); PLATELET COUNT,PLT 302 10^3/uL (150-450); RED BLOOD CELL COUNT 4.69 10^6/uL (4.2-5.4); WHITE BLOOD CELL COUNT,WBC 8.9 10^3/uL (5.0-10.0)
[2025-03-26 19:53] LABS: A/G RATIO 0.75; ALANINE AMINOTRANSFERASE,ALT 55 U/L (14-59); ALBUMIN 3.3 g/dL (3.4-5.0); ALKALINE PHOSPHATASE 106 U/L (46-116); ASPARTATE AMNIOTRANSFERASE,AST 35 U/L (15-37); BILIRUBIN TOTAL 0.3 mg/dL (0.2-1.0); BLOOD UREA NITROGEN,BUN 9 mg/dL (7-18); CARBON DIOXIDE,CO2 26 mmol/L (21-32); CHLORIDE,CL 105 mmol/L (98-107); EST CRCL DRUG DOSING (CG) 72.86 mL/min; ESTIMATED GFR 86 mL/min (>=60); GLUCOSE RANDOM 118 mg/dL (70-99); PROTEIN TOTAL,TP 7.7 g/dL (6.4-8.2); SODIUM,NA 141 mmol/L (136-145)
[2025-03-26] MEDS: Benzonatate 100 MG Cap PO ONE (20:47)
== END 2025-03-26 20:50 | disposition home or self-care (01) ==
LOC: DL.ED 18:31
DX: J06.9 Acute upper respiratory infection, unspecified (principal); R07.89 Other chest pain; Z90.49 Acquired absence of other specified parts of digestive tract; K21.9 Gastro-esophageal reflux disease without esophagitis; Z79.899 Other long term (current) drug therapy; Z91.048 Other nonmedicinal substance allergy status; Z88.5 Allergy status to narcotic agent; Z88.8 Allergy status to other drugs, medicaments and biological substances; Z91.018 Allergy to other foods; Z88.0 Allergy status to penicillin
CPT/HCPCS: 36415; 71045; 80053; 83735; 84484; 85025; 85379; 87081; 87430; 93005; 99285; A9270